=== PATIENT | female | born 1995 | race Two or more races ===

== ENCOUNTER 2019-08-01 00:07 | Emergency (ER) | payer MEDICAID ==
[~2019-08-01] VITALS: Ht 170.2 cm; Wt 138.3 kg
[~2019-08-01 00:07] MED LIST: ALBU18HF2 IH; IBUP-1984 PO; LORA10TA65 PO
[2019-08-01 00:11] VITALS: BP 176/109
[2019-08-01] MEDS ORDERED: acetaminophen 325mg tablet PO ONE (01:45)
[2019-08-01] MEDS ORDERED: sulfamethoxazole/trimethoprim DS (800/160mg) tablet PO ONE (01:45)
[2019-08-01] MEDS ORDERED: SULF1TAB49 PO (02:03)
[2019-08-01] MEDS ORDERED: CEPH-572 PO (15:53)
== END 2019-08-01 02:24 | disposition home or self-care (01) ==
LOC: ER 00:07
DX: L03.113 Cellulitis of right upper limb (principal); J45.909 Unspecified asthma, uncomplicated; Z79.899 Other long term (current) drug therapy
CPT/HCPCS: 73130; 99283

== ENCOUNTER 2019-08-01 15:12 | Emergency (ER) | payer MEDICAID ==
[~2019-08-01] VITALS: Ht 170.2 cm; Wt 120.0 kg
[~2019-08-01 15:12] MED LIST changes: +SULF1TAB49 PO
[2019-08-01] MEDS ORDERED: CEPH-572 PO (15:53)
[2019-08-01] MEDS ORDERED: cephalexin 250mg capsule PO ONE (15:55)
[2019-08-01 16:27] VITALS: BP 161/88
== END 2019-08-01 16:38 | disposition home or self-care (01) ==
LOC: ER 15:12
DX: L03.113 Cellulitis of right upper limb (principal); M54.5 Low back pain; J45.909 Unspecified asthma, uncomplicated; Z79.2 Long term (current) use of antibiotics; Z79.899 Other long term (current) drug therapy
CPT/HCPCS: 99283

== ENCOUNTER 2020-10-07 16:46 | Emergency (ER) | payer MEDICAID ==
[~2020-10-07] VITALS: Ht 170.2 cm; Wt 113.6 kg
[~2020-10-07 16:46] MED LIST changes: -SULF1TAB49 PO
== END 2020-10-07 19:27 | disposition home or self-care (01) ==
LOC: ER 16:47
DX: R05 Cough (principal); Z20.822 Contact with and (suspected) exposure to COVID-19; J45.909 Unspecified asthma, uncomplicated; Z79.899 Other long term (current) drug therapy
CPT/HCPCS: 36415; 87635; 99283

== ENCOUNTER 2021-12-22 17:51 | Emergency (ER) | payer MEDICAID ==
[~2021-12-22] VITALS: Ht 170.2 cm; Wt 151.8 kg
[2021-12-22 18:07] VITALS: BP 162/99
--- NOTE | 2021-12-22 21:10 | NUR ---
PT STATES "IM JUST GOING TO GO HOME AND START MY SELF QUARANTINE". PT EDUCATION GIVEN ON [facility] GUIDLINES FOR COVID QUARANTINE PT LEFT @ 2109. INFORMED. PT
== END 2021-12-22 21:15 | disposition home or self-care (01) ==
LOC: ER 17:51
DX: J00 Acute nasopharyngitis [common cold] (principal); R05.9 Cough, unspecified; R09.89 Other specified symptoms and signs involving the circulatory and respiratory systems; Z53.21 Procedure and treatment not carried out due to patient leaving prior to being seen by health care provider

== ENCOUNTER 2023-01-30 09:26 | Emergency (ER) | payer MEDICAID ==
[~2023-01-30] VITALS: Ht 167.6 cm; Wt 150.0 kg
[2023-01-30] MEDS ORDERED: albuterol 2.5 MG/3 ML nebule NEB ONE (09:55)
[2023-01-30] MEDS ORDERED: ALBU8HFA PO (10:26)
[2023-01-30] MEDS ORDERED: MONT-40 PO (10:26)
[2023-01-30] MEDS ORDERED: FLUT16SP2 BOTHNARES (10:26)
[2023-01-30] MEDS ORDERED: BENZ-38 PO (10:26)
[2023-01-30 10:39] VITALS: BP 150/98
== END 2023-01-30 10:41 | disposition home or self-care (01) ==
LOC: ER 09:26
DX: J20.9 Acute bronchitis, unspecified (principal); Z20.822 Contact with and (suspected) exposure to COVID-19; J45.909 Unspecified asthma, uncomplicated; Z79.899 Other long term (current) drug therapy
CPT/HCPCS: 71045; 87811; 94640; 99284

== ENCOUNTER 2024-11-03 22:32 | Emergency (ER) | payer MEDICAID ==
[~2024-11-03] VITALS: Ht 170.2 cm; Wt 138.5 kg
[~2024-11-03 22:32] MED LIST changes: +FLUT16SP2 BOTHNARES; +MONT-40 PO
[2024-11-03 22:48] VITALS: BP 136/98; PULSE 89; RESP 17; TEMP 96.8; O2SAT 98
[2024-11-03] MEDS: diphenhydrAMINE 50 mg/ml inj IM ONE (23:36)
== END 2024-11-04 00:06 | disposition home or self-care (01) ==
LOC: ER 22:32
DX: T78.1XXA Other adverse food reactions, not elsewhere classified, initial encounter (principal); R22.0 Localized swelling, mass and lump, head; J45.909 Unspecified asthma, uncomplicated; X58.XXXA Exposure to other specified factors, initial encounter; Z91.030 Bee allergy status; Z88.7 Allergy status to serum and vaccine; Z79.52 Long term (current) use of systemic steroids; Z79.1 Long term (current) use of non-steroidal anti-inflammatories (NSAID)
CPT/HCPCS: 96372; 99283; J1200